=== PATIENT | female | born 1960 | race Caucasian/White ===

== ENCOUNTER 2019-01-10 19:41 | Emergency (ER) | payer MEDICAID, OTHER ==
[~2019-01-10] VITALS: Ht 152.4 cm; Wt 119.6 kg
[~2019-01-10 19:41] MED LIST: DEXT30DR5 OP
[2019-01-10 19:48] VITALS: BP 147/75; PULSE 92; RESP 20; Ht 152.4 cm; Wt 119.6 kg
== END 2019-01-10 21:40 | disposition home or self-care (01) ==
LOC: FTE 19:41
DX: H11.32 Conjunctival hemorrhage, left eye (principal)
CPT/HCPCS: 99282